=== PATIENT | male | born 1975 | race Caucasian/White ===

== ENCOUNTER → 2017-01-28 | Outpatient (CLI) | payer MEDICAID ==
[~2017-01-28] MED LIST: AMOXICILLIN500 MG PO; ANAPROX DS550 MG PO; AUGMENTIN 875 M1 TAB PO; BACTRIM DS 8001 TA1 PO; CEPHALEXIN500 M1 PO; CIPRO500 MG PO; CLEOCIN HCL150 MG PO; CLINDAMYCIN150 MG PO; CLONIDINE HYDR0.1 MG PO; DALMANE30 MG PO; DAYPRO600 M1 PO; DOXYCYCLINE100 MG PO; FIORICET 325 MG1 TAB PO; FLEXERIL10 MG PO; HYDROCODONE BIT1 T11 PO; KEFLEX500 MG PO; MOTRIN,RUFEN400 MG; MOTRIN800 MG PO; NAPROSYN500 MG PO; PENICILLIN VK500 MG PO; PERCOCET 325 MG1 TA7; POLYSPORIN OINT15 GM T; PREDNICOT20 MG PO; Peridex 473 ML473 ML PO; SKELAXIN800 MG PO; TORADOL10 MG PO; TRAMADOL HCL50 MG PO; TRIMOX500 MG PO; TYLENOL W/CODEI1 TA2 PO; TYLENOL500 MG; VICODIN 5/500 505 MG PO; VICODIN ES 7501 TAB PO; VOLTAREN50 M1 PO; ZOFRAN4 MG PO
== END | disposition home or self-care (01) ==
LOC: RAD 13:11
DX: Z72.0 Tobacco use (principal)

== ENCOUNTER 2019-05-14 17:40 | Emergency (ER) | payer SELFPAY ==
[~2019-05-14] VITALS: Ht 175.2 cm; Wt 77.1 kg
[2019-05-14 17:40] VITALS: BP 109/64
[2019-05-14 18:28] LABS: BILIRUBIN NEGATIVE (NEGATIVE); BLOOD NEGATIVE (NEGATIVE); CLARITY CLEAR (CLEAR); COLOR YELLOW (YELLOW); GLUCOSE NEGATIVE (NEGATIVE); KETONE NEGATIVE (NEGATIVE); LEUKO ESTERASE NEGATIVE (NEGATIVE); NITRITE NEGATIVE (NEGATIVE); PH 5.5 (5.0-9.0); SPECIFIC GRAVITY 1.025 (1.005-1.030); UROBILINOGEN 0.2 E.U./dl (0.2-1.0)
[2019-05-14] MEDS ORDERED: PREDNISONE20 M1 PO (19:55)
[2019-05-14] MEDS ORDERED: ROBAXIN500 M1 PO (19:55)
== END 2019-05-14 20:18 | disposition home or self-care (01) ==
LOC: ED 17:40
PROVIDERS: Physician Assistant
DX: S39.012A Strain of muscle, fascia and tendon of lower back, initial encounter (principal); Z87.442 Personal history of urinary calculi; Z79.899 Other long term (current) drug therapy; X50.0XXA Overexertion from strenuous movement or load, initial encounter; Y93.89 Activity, other specified; Y92.69 Other specified industrial and construction area as the place of occurrence of the external cause; Y99.0 Civilian activity done for income or pay

== ENCOUNTER 2019-10-16 14:57 | Emergency (ER) | payer SELFPAY ==
[~2019-10-16] VITALS: Ht 175.2 cm; Wt 82.6 kg
[~2019-10-16 14:57] MED LIST changes: +PREDNISONE20 M1 PO; +ROBAXIN500 M1 PO
[2019-10-16 15:15] VITALS: BP 115/78
[2019-10-16 16:44] LABS: BASO # 0.1 10*3/uL (0.0-0.1); BASO % 0.5 % (0.0-1.0); EOS # 0.1 10*3/uL (0.0-0.4); EOS % 1.1 % (1.0-4.0); HEMATOCRIT 40.6 % (42.0-52.0); HEMOGLOBIN 13.3 g/dl (14.0-18.0); LYMPH # 3.4 10*3/uL (1.3-4.4); LYMPH % 33.6 % (27.0-41.0); MEAN CELL VOLUME 90.2 fl (80.0-94.0); MEAN CORPUSCULAR HGB 29.6 pg (27.0-31.0); MEAN CORPUSCULAR HGB CONC 32.8 g/dl (33.0-37.0); MEAN PLATELET VOLUME 9.1 fl (9.6-12.3); MONO # 0.8 10*3/uL (0.1-1.0); MONO % 8.3 % (3.0-9.0); NEUT # 5.7 10*3/uL (2.3-7.9); NEUT % 56.2 % (47.0-73.0); PLATELET COUNT AUTOMATED 249 10*3/uL (130-400); RED CELL DISTRI WIDTH 13.2 % (0-14.5); WHITE BLOOD COUNT 10.1 10*3/uL (4.8-10.8)
[2019-10-16 16:45] LABS: BILIRUBIN NEGATIVE (NEGATIVE); BLOOD NEGATIVE (NEGATIVE); CLARITY CLEAR (CLEAR); COLOR YELLOW (YELLOW); GLUCOSE NEGATIVE (NEGATIVE); KETONE TRACE (NEGATIVE); LEUKO ESTERASE NEGATIVE (NEGATIVE); NITRITE NEGATIVE (NEGATIVE); UROBILINOGEN 0.2 E.U./dl (0.2-1.0)
[2019-10-16 16:51] LABS: URINE AMPHETAMINES < 1000 (1000ng/ml); URINE BARBITURATES < 200 (200ng/ml); URINE BENZODIAZEPINES > 200 (200ng/ml); URINE CANNABINOIDS (THC) < 50 (50ng/ml); URINE COCAINE < 300 (300ng/ml); URINE METHADONE < 300 (300ng/ml); URINE OPIATES < 300 (300ng/ml)
[2019-10-16 16:55] LABS: URINE PHENCYCLIDINE < 25 (25ng/ml)
[2019-10-16 16:58] LABS: ALBUMIN 3.5 gm/dl (3.1-4.5); ALKALINE PHOSPHATASE 79 U/L (45-117); BUN 16 mg/dl (7-24); CHLORIDE 110 mmol/L (98-107); CREATININE 0.94 mg/dL (0.70-1.30); POTASSIUM 4.2 mmol/L (3.5-5.1); SGOT/AST 35 IU/L (3-35); SGPT/ALT 55 U/L (12-78); SODIUM 140 mmol/L (136-145); TOTAL PROTEIN 6.8 gm/dL (6.4-8.2)
[2019-10-16 16:58] LABS: BACTERIA TRACE; WBC 0-2 wbc/hpf (0-5)
[2019-10-16 16:59] LABS: MUCOUS TRACE
[2019-10-16 17:02] LABS: ACETAMINOPHEN (TYLENOL) < 5.0 ug/ml (10-30); ETHYL ALCOHOL < 3.0 mg/dl (<3)
== END 2019-10-16 17:55 | disposition home or self-care (01) ==
LOC: ED 14:57
PROVIDERS: Physician Assistant
DX: F33.3 Major depressive disorder, recurrent, severe with psychotic symptoms (principal); J45.909 Unspecified asthma, uncomplicated; F17.200 Nicotine dependence, unspecified, uncomplicated; Z79.899 Other long term (current) drug therapy

== ENCOUNTER 2019-11-01 13:47 | Emergency (ER) | payer OTHER ==
[~2019-11-01] VITALS: Ht 175.2 cm; Wt 86.4 kg
[2019-11-01 13:54] VITALS: BP 118/99
== END 2019-11-01 16:15 | disposition home or self-care (01) ==
LOC: ED 13:47
DX: S00.93XA Contusion of unspecified part of head, initial encounter (principal); H61.23 Impacted cerumen, bilateral; R42 Dizziness and giddiness; J45.909 Unspecified asthma, uncomplicated; F17.200 Nicotine dependence, unspecified, uncomplicated; V89.2XXA Person injured in unspecified motor-vehicle accident, traffic, initial encounter; Y93.89 Activity, other specified; Y92.89 Other specified places as the place of occurrence of the external cause; Y99.8 Other external cause status

== ENCOUNTER 2020-03-27 22:08 | Emergency (ER) | payer OTHER ==
[~2020-03-27] VITALS: Ht 175.2 cm; Wt 86.6 kg
[2020-03-27 23:35] VITALS: BP 120/51
== END 2020-03-28 01:57 | disposition left against medical advice (07) ==
LOC: ED 22:08
DX: S86.911A Strain of unspecified muscle(s) and tendon(s) at lower leg level, right leg, initial encounter (principal); S86.912A Strain of unspecified muscle(s) and tendon(s) at lower leg level, left leg, initial encounter; S00.81XA Abrasion of other part of head, initial encounter; J45.909 Unspecified asthma, uncomplicated; V89.2XXA Person injured in unspecified motor-vehicle accident, traffic, initial encounter; Y93.89 Activity, other specified; Y92.89 Other specified places as the place of occurrence of the external cause; Y99.8 Other external cause status